=== PATIENT | male | born 1940 | race Caucasian/White ===

== ENCOUNTER 2023-05-31 15:36 | Inpatient (IN) | payer OTHER, MEDICAID ==
[~2023-05-31] VITALS: Ht 170.2 cm; Wt 78.7 kg
[2023-05-31 15:42] VITALS: PULSE 140; RESP 20; TEMP 97.1; O2SAT 98
--- NOTE | 2023-05-31 15:47 | NUR ---
[facility]- ALS TRANSPORT PATIENT WAS BIBA TO ER BED 03
[2023-05-31] MEDS ORDERED: DILTIAZEM 25 MG/5 ML VIAL IVP ONE ×2 (16:05→16:55)
[2023-05-31] MEDS ORDERED: ONDANSETRON 4 MG/2 ML VIAL IVP ONE ×2 (16:05→21:15)
[2023-05-31] MEDS ORDERED: NACL 0.9% 500 ML IV ONE ×2 (16:05→16:55)
--- NOTE | 2023-05-31 16:36 | NUR ---
biba from home per family more altered than usual. aao x3 with periods of forgetfulness. lethargic. recently treated for uti. bs 197. + nausea. 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 hx: bladder, kidney, prostates cancer, afib, htn. + right nephrostomy, ileostomy. per ems afib rvron 12 lead 110-150. aa0 x2. resp even and nonlabored. 18 g piv right ac by ems. dr. ross @ bedside
[2023-05-31 16:45] LABS: HEMATOCRIT 24.2 % (36-52); HEMOGLOBIN 8.1 g/dL (12.0-18.0); MEAN CORPUSCULAR HEMOGLOBIN 30 pg (27-31); MEAN CORPUSCULAR HGB CONC 33 g/dL (33-37); MEAN CORPUSCULAR VOLUME 89.7 fL (80-94); PLATELET COUNT (AUTO) 146 K/uL (140-450); RED BLOOD CELL COUNT(AUTO) 2.69 MIL/uL (4.20-6.10); RED CELL DISTRIBUTION WIDTH 17.5 % (11.6-13.7); WHITE BLOOD COUNT (AUTO) 20.6 K/uL (4.8-10.8)
[2023-05-31 16:52] LABS: BASOPHILS % (MANUAL) 0 % (0-2); EOSINOPHILS % (MANUAL) 2 % (0-4); LYMPHOCYTES % (MANUAL) 2 % (20-46); MONOCYTES % (MANUAL) 3 % (5-12); PROTHROMBIN TIME 12.2 secs (10.8-13.4)
[2023-05-31] MEDS ORDERED: DILTIAZEM 30 MG TAB PO ONE (16:55)
--- NOTE | 2023-05-31 17:03 | NUR ---
rectal temp 99
[2023-05-31 17:05] LABS: ALBUMIN 1.9 g/dL (3.4-5.0); ANION GAP 16.8 (8-16); ASPARTATE AMINOTRANSFERASE 45 U/L (15-37); CARBON DIOXIDE 18.4 mmol/L (21-32); CHLORIDE 103 mmol/L (98-107); CREATININE 2.4 mg/dL (0.6-1.3); GLUCOSE 124 mg/dL (74-106); POTASSIUM 4.2 mmol/L (3.5-5.1); SODIUM SERUM 134 mmol/L (136-145); TOTAL BILIRUBIN 0.8 mg/dL (0.0-1.0); UREA NITROGEN, BLOOD 45 mg/dL (7-18)
--- NOTE | 2023-05-31 17:09 | NUR ---
bp 99/60. afib on monitor with rta efrom 108-120. started 2nd bag ns 500 ml bolus. will cont to monitor
[2023-05-31] MEDS ORDERED: NOREPINEPHRINE 4 MG in DEXTROSE 5% 250 ML IV ONE (17:35)
[2023-05-31] MEDS ORDERED: PIPERACILLIN/TAZOBACTAM 3.375 GM in DEXTROSE 5% 50 ML IV ONE (17:35)
[2023-05-31] MEDS ORDERED: PIPERACILLIN/TAZOBACTAM 3.375 GM VIAL IV ONE (17:39)
--- NOTE | 2023-05-31 18:03 | NUR ---
per dr. rsos. start pt on levophed. d/t bp trending down 109/60. afib 109-127. called pharmacy and awaiting drip. iv atb started. central line set up @ bedside
[2023-05-31] MEDS ORDERED: ATOR40TA PO (18:10)
[2023-05-31] MEDS ORDERED: HYDR25TA32 PO (18:15)
[2023-05-31] MEDS ORDERED: APIX2.5 PO (18:15)
[2023-05-31] MEDS ORDERED: METO-624 PO (18:15)
[2023-05-31] MEDS ORDERED: LOSA100T2 PO (18:15)
[2023-05-31] MEDS ORDERED: MEGE40SU4 PO (18:15)
[2023-05-31] MEDS ORDERED: ESCI10TA PO (18:15)
--- NOTE | 2023-05-31 18:28 | NUR ---
er @ bedside for central line insertion. daughter aware of plan of care.
--- NOTE | 2023-05-31 18:41 | NUR ---
per er central line centralline to left neck. u/s confirmed. ok to use
--- NOTE | 2023-05-31 18:54 | NUR ---
repeat troponiin sent
[2023-05-31 18:59] LABS: BILIRUBIN,URINE NEGATIVE (NEGATIVE); BLOOD, URINE 3+ (NEGATIVE); LEUKOCYTE ESTERASE ,URINE 2+ (NEGATIVE); NITRITE, URINE NEGATIVE (NEGATIVE); UGLUCOSE NEGATIVE (NEGATIVE)
[2023-05-31 19:00] LABS: APPEARANCE,URINE CLOUDY (CLEAR); COLOR,URINE AMBER (YELLOW)
--- NOTE | 2023-05-31 19:04 | NUR ---
levophed drip initiated with 2 nurse verification. will cont to monitor
--- NOTE | 2023-05-31 19:12 | NUR ---
report given to adrian poe
--- NOTE | 2023-05-31 19:12 | NUR ---
received report from morning shift nurse.
--- NOTE | 2023-05-31 19:20 | NUR ---
pt on bed, A/Ox2. not in distress.
--- NOTE | 2023-05-31 19:51 | NUR ---
pt. wheeled to ct scan. accompanied by RN and radial drill press operator for plastic
--- NOTE | 2023-05-31 20:07 | NUR ---
pt wheeled back to bed from ct scan.
--- NOTE | 2023-05-31 20:22 | NUR ---
wiith nephrostomy tube on right with no output. with ileostpmy bag with liquid brown colored output
--- NOTE | 2023-05-31 21:00 | NUR ---
pt vomiting with phlegm and HR: 160. informed Rene. Dr. López verbally state to continue levophed.
--- NOTE | 2023-05-31 21:11 | NUR ---
daughter at bedside
--- NOTE | 2023-05-31 21:35 | NUR ---
informed ERMD of rectal temp: 100.1. Dr. López verbally acknowledge the report
[2023-05-31] MEDS ORDERED: ACETAMINOPHEN EXTRA STRENGTH 500 MG TAB PO ONE (21:40)
[2023-05-31] MEDS ORDERED: ACETAMINOPHEN 325 MG TAB PO PRN (21:55)
[2023-05-31] MEDS ORDERED: HYDROcodone/APAP 5/325 MG 1 TAB TAB PO PRN (21:55)
[2023-05-31] MEDS ORDERED: LORazepam 2 MG/ML VIAL IVP PRN (21:55)
[2023-05-31] MEDS ORDERED: MORPHINE SULFATE 2 MG/ML SYR IVP PRN (21:55)
[2023-05-31] MEDS ORDERED: NOREPINEPHRINE 8 MG in DEXTROSE 5% 250 ML IV PRN (21:55)
--- NOTE | 2023-05-31 22:30 | NUR ---
Patient will be admitted to care of Dr. Ann. Admited to ICU. Will go to room 2. Belongings list completed. Report to Ashli OCHOA. Ashli OCHOA verbalized understanding and no further question.
[2023-05-31 22:33] VITALS: BP 95/57; PULSE 99; RESP 18; TEMP 98.7; O2SAT 95
--- NOTE | 2023-05-31 22:33 | NUR ---
RECEIVED PT FROM ER VIA GURNEY.TRANSFERRED TO ICU BED2, MONITORS ATTACHED.AFIB NOTED ON MONITOR.ON ROOM AIR.NO SOB NOTED.MAINTAINED ON NPO ORDERED.ABDOMEN SOFT/NON DISTENDED.W/ILEOSTOMY IN PLACE, SMALL AMT OF YELLOWISH LIQUID/OUTPUT NOTED.W/RT NEPHROSTOMY TUBE ALREADY IN PLACE WITH SMALL AMT OF YELLOWISH OUTPUT NOTED.SKIN INTACT ON SACROCOCCYGEAL AREA.FOAM DRESSING APPLIED TO AREA.PT ABLE TO MOVE ALL EXTREMITIES WITH MILD WEAKNESS.FALL PRECAUTION IN PLACE.BED IN LOWEST POSITION.CALL LIGHT WITHIN REACH. PTS DAUGHTER DARSHAN AT BEDSIDE, PTS HX OBTAINED FROM HER. Addendum: 06/01/23 at 0329 by Milagros Aiken RN W/TLC TO LT IJ INTACT, GOOD BLOOD RETURN TO ALL 3 PORTS INFUSING LEVOPHED DRIP 4MG IN 250ML D5W AT 0.5MCG/MIN. PERIPHERAL IV TO LT AC G20 INTACT.SALINE LOCK AND RT AC G18 INTACT.SALINE LOCK
[2023-05-31 22:51] LABS: PROTHROMBIN TIME 12.6 secs (10.8-13.4)
[2023-05-31 23:00] VITALS: BP 89/45; PULSE 140; PULSE 148; RESP 15; RESP 16; O2SAT 95; O2SAT 96
[2023-05-31] MEDS: NACL 0.9% 1,000 ML IV SCH (23:00)
[2023-05-31 23:15] VITALS: BP 99/62; PULSE 145; RESP 18; O2SAT 95
--- NOTE | 2023-05-31 23:20 | NUR ---
SPOKE WITH DR Chari CASTILLO, SMART GRID ENGINEER, NOTIFIED OF CONSULT, UPDATED ON PTS CONDITION.ORDERED IVF NS AT 75ML/HR.CARRIED OUT
[2023-05-31] MEDS ORDERED: LACTATED RINGERS 1,000 ML IV SCH (23:25)
[2023-05-31] MEDS ORDERED: AMIODARONE 150 MG in DEXTROSE 5% 100 ML IV ONE (23:25)
[2023-05-31 23:30] VITALS: BP 101/62; PULSE 146; RESP 14; O2SAT 96
[2023-05-31] MEDS ORDERED: AMIODARONE 150 MG/3 ML VIAL IV ONE (23:30)
[2023-05-31] MEDS ORDERED: AMIODARONE 450 MG/9 ML VIAL IV ONE (23:30)
[2023-05-31] MEDS ORDERED: LACTATED RINGERS 1,000 ML IV ONE (23:35)
[2023-05-31] MEDS: AMIODARONE 450 MG in DEXTROSE 5% 250 ML IV SCH (23:36)
[2023-05-31 23:45] VITALS: BP 115/81; PULSE 145; RESP 14; O2SAT 96
[2023-06-01] VITALS (29 sets, daily range): BP systolic 93–136; BP diastolic 60–97; PULSE 88–155; RESP 12–21; TEMP 97–98.3; O2SAT 94–98
--- NOTE | 2023-06-01 | NUR ---
SPOKE WITH DR REDDY, CONVEYOR LINE BAKERY WORKER/PHONE REGARDING CONSULT.UPDATED PHYSICIAN WITH PTS PRESENT CONDITION, QUESTIONS ANSWERED.NEW ORDERS RECEIVED TO START AMIODARONE DRIP AFTER BOLUS AND 1 L LR BOLUS.CARRIED OUT. Addendum: 06/01/23 at 0316 by Milagros Aiken RN SPOKE WITH PRAKASH MCKAY SNOWMAKER NOT DR REDDY, CONVEYOR LINE BAKERY WORKER
[2023-06-01] MEDS ORDERED: PIPERACILLIN/TAZOBACTAM 2.25 GM VIAL IV ONE ×2 (00:04→04:58)
[2023-06-01] MEDS: PIPERACILLIN/TAZOBACTAM 2.25 GM in DEXTROSE 5% 50 ML IV SCH ×3 (00:15→11:25)
--- NOTE | 2023-06-01 00:30 | NUR ---
BM NOTED, LARGE AMT OF LIQUID BROWN STOOL, PT CLEANED.REPOSITIONED.DENIES PAIN
--- NOTE | 2023-06-01 03:10 | NUR ---
PT APPEARS ASLEEP, EASILY AROUSABLE.DENIES PAIN.HR STILL AFIB ON MONITOR.ON CONTINUOUS AMIODARONE DRIP
--- NOTE | 2023-06-01 04:00 | NUR ---
AFEBRILE.PT APPEARS ASLEEP.NO S/SX OF PAIN NOTED.TLC TO LT IJ INTACT STILL INFUSING AMIODARONE DRIP PER PROTOCOL.WILL CONTINUE TO CLOSELY MONITOR PT
[2023-06-01] MEDS ORDERED: PIPERACILLIN/TAZOBACTAM 2.25 GM in DEXTROSE 5% 50 ML IV SCH (05:00)
[2023-06-01] MEDS ORDERED: AMIODARONE 450 MG/9 ML VIAL IV ONE (05:01)
[2023-06-01] MEDS: AMIODARONE 450 MG in DEXTROSE 5% 250 ML IV SCH ×2 (05:09→18:42)
[2023-06-01 05:12] LABS: BASOPHILS % (AUTO) 0.1 % (0.0-2.0); EOSINOPHILS % (AUTO) 0.1 % (0.0-4.0); HEMATOCRIT 22.1 % (36-52); HEMOGLOBIN 7.7 g/dL (12.0-18.0); LYMPHOCYTES # (AUTO) 0.4 K/uL (2.0-11.5); MEAN CORPUSCULAR HEMOGLOBIN 30 pg (27-31); MEAN CORPUSCULAR HGB CONC 35 g/dL (33-37); MEAN CORPUSCULAR VOLUME 87.4 fL (80-94); MONOCYTES # (AUTO) 0.5 K/uL (0.8-1.0); MONOCYTES % (AUTO) 2.7 % (1.7-9.3); NEUTROPHILS # (AUTO) 19.4 K/uL (1.8-7.7); NEUTROPHILS % (AUTO) 95.1 % (42.2-75.2); PLATELET COUNT (AUTO) 139 K/uL (140-450); RED BLOOD CELL COUNT(AUTO) 2.53 MIL/uL (4.20-6.10); RED CELL DISTRIBUTION WIDTH 16.8 % (11.6-13.7); WHITE BLOOD COUNT (AUTO) 20.4 K/uL (4.8-10.8)
[2023-06-01 05:32] LABS: ALBUMIN 1.7 g/dL (3.4-5.0); ANION GAP 17.5 (8-16); ASPARTATE AMINOTRANSFERASE 28 U/L (15-37); CARBON DIOXIDE 17.2 mmol/L (21-32); CHLORIDE 105 mmol/L (98-107); CREATININE 2.4 mg/dL (0.6-1.3); GLUCOSE 135 mg/dL (74-106); MAGNESIUM 1.5 mg/dL (1.8-2.4); PHOSPHORUS 4.2 mg/dL (2.5-4.9); POTASSIUM 3.7 mmol/L (3.5-5.1); SODIUM SERUM 136 mmol/L (136-145); TOTAL BILIRUBIN 0.9 mg/dL (0.0-1.0); UREA NITROGEN, BLOOD 48 mg/dL (7-18)
--- NOTE | 2023-06-01 06:00 | NUR ---
AMIODARONE DRIP DECREASED PER PROTOCOL. PT ASLEEP,NO S/SX OF RESPIRATORY DISTRESS.NO PAIN NOTED.STILL AFIB ON MONITOR
--- NOTE | 2023-06-01 07:25 | NUR ---
Opening Received report on pt. Pt asleep, arousable, equal chest rise and fall, states no pain or distress on room air. Pt currently on amiodarone drip, HR in 100s, afib. Pt also receiving IV fluids to left IJ TLC. Ileostomy with small amount of yellow drainage. nephrostomy with yellow drainage. SCDs in place. IV saline lock sites, intact, patent.
[2023-06-01] MEDS: ONDANSETRON 4 MG/2 ML VIAL IVP PRN ×2 (09:59→20:39)
--- NOTE | 2023-06-01 09:59 | NUR ---
Pt c/o nausea, provided pt with PRN zofran per MD order and sips of water. Tolerated water without coughing.
--- NOTE | 2023-06-01 10:30 | NUR ---
Reassessed pt's nausea post administration, states he is okay.
--- NOTE | 2023-06-01 10:45 | NUR ---
Dr. Berry roundnidia on pt.
[2023-06-01] MEDS ORDERED: MAG SULF 2000 MG/WATER PREMIX 50 ML IV PRN (11:00)
[2023-06-01] MEDS ORDERED: VANCOMYCIN PER PHARMACY MC PRN (11:00)
[2023-06-01] MEDS ORDERED: POTASSIUM CHLORIDE 10 MEQ TABER PO PRN (11:00)
--- NOTE | 2023-06-01 11:00 | NUR ---
Dr. Snow rounding on pt.
[2023-06-01] MEDS: NACL 0.9% 1,000 ML IV SCH (11:25)
[2023-06-01] MEDS ORDERED: VANCOMYCIN 1,000 MG in DEXTROSE 5% 250 ML IV SCH (13:00)
--- NOTE | 2023-06-01 13:35 | NUR ---
Dr. Peter rounding on pt, states to collect stool sample and OK for pt to start on full liquid diet, other orders made as well.
--- NOTE | 2023-06-01 15:48 | NUR ---
Rounds Pt states no pain or distress on room air, no nausea. Pt with no noted BM.
[2023-06-01] MEDS ORDERED: DIGOXIN 0.25 MG/ML AMP IV ONE ×5 (17:15→23:30)
[2023-06-01] MEDS ORDERED: VANCOMYCIN 500 MG VIAL PO SCH (18:00)
--- NOTE | 2023-06-01 19:15 | NUR ---
Closing Pt in no signs of distress on room air. Pt with poor appetite for dinner, able to have some ice cream and drink. Remains on amiodarone drip. Endorsed plan of care to RN. Addendum: 06/01/23 at 1937 by Agency 02 DON RN No BM noted for stool collection.
--- NOTE | 2023-06-01 19:30 | NUR ---
ASSUMED CARE OF PT.INITIAL ASSESSMENT COMPLETED.AFIB NOTED ON MONITOR.ON ROOM AIR.NO SOB NOTED.W/PERIPHERAL IV TO BRIANA AND KELLEE INTACT AND TLC TO LT IJ WITH GOOD BLOOD RETURN TO ALL 3 PORTS INFUSING ORDERED IVF AND AMIODARONE DRIP AT 0.5MG/MIN.ABDOMEN SOFT/NON DISTENDED.W/ILEOSTOMY IN PLACE, SMALL AMT OF YELLOWISH LIQUID/OUTPUT NOTED.W/RT NEPHROSTOMY TUBE IN PLACE WITH SMALL AMT OF YELLOWISH OUTPUT NOTED.SKIN INTACT ON SACROCOCCYGEAL AREA.W/FOAM DRESSING D/I.PT ABLE TO MOVE ALL EXTREMITIES WITH MILD WEAKNESS.FALL PRECAUTION IN PLACE.BED IN LOWEST POSITION.CALL LIGHT WITHIN REACH. PTS DAUGHTER ALEX AT BEDSIDE,UPDATED ON PLAN OF CARE.QUESTIONS ANSWERED.
[2023-06-01] MEDS ORDERED: VANCOMYCIN 500 MG VIAL ONE (19:35)
--- NOTE | 2023-06-01 20:00 | NUR ---
PHONE CALL TO AFTER HOURS PHARM[facility]Y REGARDING VANCOMYCIN P.O; SPOKE WITH LAURE, SHE SAID TO GET A VANCO 500MG VIAL AND DILUTE WITH 20ML STERILE WATER AND GIVE 5ML TO THE PT PER DOSE.
[2023-06-01] MEDS ORDERED: WATER STERILE 20 ML MC ONE (20:09)
[2023-06-01] MEDS: METOPROLOL 50 MG TAB PO SCH (20:20)
[2023-06-01] MEDS: APIXABAN 2.5 MG TAB PO SCH (20:21)
[2023-06-01] MEDS: metroNIDAZOLE 500 MG/NS PREMIX 100 ML IV SCH (20:22)
[2023-06-01] MEDS: VANCOMYCIN HCL 25 MG/ML SOLN PO SCH (20:23)
[2023-06-01] MEDS ORDERED: MEROPENEM 500 MG VIAL IV ONE (20:40)
--- NOTE | 2023-06-01 20:40 | NUR ---
pt c/o nausea, zofran admin as ordered.
[2023-06-01] MEDS: MEROPENEM 500 MG in NACL 0.9% 50 ML IV SCH (20:45)
[2023-06-01] MEDS ORDERED: METOPROLOL 50 MG TAB PO SCH (21:00)
[2023-06-02] VITALS (15 sets, daily range): BP systolic 96–131; BP diastolic 47–80; PULSE 68–99; RESP 14–18; TEMP 96.7–98.9; O2SAT 94–98
--- NOTE | 2023-06-02 | NUR ---
PT ASLEEP,EASILY AROUSABLE.NO SOB NOTED ON ROOM AIR.DENIES PAIN.STILL ON AMIODARONE DRIP AT 0.5MG/MIN, STILL AFIB ON MONITOR
[2023-06-02] MEDS: VANCOMYCIN HCL 25 MG/ML SOLN PO SCH ×4 (00:52→17:35)
--- NOTE | 2023-06-02 03:00 | NUR ---
BM NOTED; MODERATE AMT OF BROWNISH LIQUID STOOL, SPEC FOR C DIFF SENT TO LAB ORDERED. PT CLEANED AND REPOSITIONED.DENIES PAIN
[2023-06-02] MEDS: NACL 0.9% 1,000 ML IV SCH ×2 (04:23→13:55)
[2023-06-02] MEDS: metroNIDAZOLE 500 MG/NS PREMIX 100 ML IV SCH ×3 (05:22→22:42)
[2023-06-02] MEDS: METOPROLOL 50 MG TAB PO SCH ×3 (05:22→21:00)
[2023-06-02] MEDS ORDERED: DIGOXIN 0.25 MG/ML AMP IV ONE (05:30)
[2023-06-02 05:42] LABS: BASOPHILS % (AUTO) 0.1 % (0.0-2.0); EOSINOPHILS # (AUTO) 0.2 K/uL (0-0.4); EOSINOPHILS % (AUTO) 0.9 % (0.0-4.0); LYMPHOCYTES # (AUTO) 0.4 K/uL (2.0-11.5); MEAN CORPUSCULAR HEMOGLOBIN 30 pg (27-31); MEAN CORPUSCULAR HGB CONC 33 g/dL (33-37); MEAN CORPUSCULAR VOLUME 88.9 fL (80-94); MONOCYTES # (AUTO) 0.5 K/uL (0.8-1.0); MONOCYTES % (AUTO) 2.5 % (1.7-9.3); NEUTROPHILS # (AUTO) 19.5 K/uL (1.8-7.7); NEUTROPHILS % (AUTO) 94.5 % (42.2-75.2); PLATELET COUNT (AUTO) 153 K/uL (140-450); RED CELL DISTRIBUTION WIDTH 17.5 % (11.6-13.7); WHITE BLOOD COUNT (AUTO) 20.7 K/uL (4.8-10.8)
[2023-06-02 06:12] LABS: PHOSPHORUS 4.2 mg/dL (2.5-4.9)
--- NOTE | 2023-06-02 06:24 | NUR ---
BM NOTED.SMALL AMT OF LIQUID BROWNISH STOOL, PT CLEANED.REPOSITIONED
[2023-06-02 06:55] LABS: ANION GAP 18.3 (8-16); CARBON DIOXIDE 14.2 mmol/L (21-32); CHLORIDE 104 mmol/L (98-107); CREATININE 2.4 mg/dL (0.6-1.3); GLUCOSE 130 mg/dL (74-106); POTASSIUM 3.5 mmol/L (3.5-5.1); SODIUM SERUM 133 mmol/L (136-145); UREA NITROGEN, BLOOD 52 mg/dL (7-18)
--- NOTE | 2023-06-02 07:15 | NUR ---
Opening Received report on pt. Pt asleep, arousable, equal chest rise and fall, states no pain or distress on room air. Pt on amiodarone drip continuously per Dr. Fowler. Pt with nephrostomy tube yellow output, and nephrostomy with yellow output. No other complaints at this time.
[2023-06-02] MEDS: ESCITALOPRAM 20 MG TAB PO SCH (08:38)
[2023-06-02] MEDS: MEROPENEM 500 MG in NACL 0.9% 50 ML IV SCH ×2 (08:38→22:45)
[2023-06-02] MEDS: ATORVASTATIN 20 MG TAB PO SCH (08:39)
[2023-06-02] MEDS: APIXABAN 2.5 MG TAB PO SCH ×2 (08:40→22:49)
[2023-06-02] MEDS: MEGESTROL 400 MG/10 ML UDC PO SCH (08:42)
[2023-06-02] MEDS ORDERED: LOSARTAN 50 MG TAB PO SCH (09:00)
[2023-06-02] MEDS ORDERED: hydroCHLOROthiazide 25 MG TAB PO SCH (09:00)
[2023-06-02] MEDS ORDERED: VANCOMYCIN 750 MG in DEXTROSE 5% 250 ML IV SCH (09:00)
[2023-06-02] MEDS: ONDANSETRON 4 MG/2 ML VIAL IVP PRN (09:01)
--- NOTE | 2023-06-02 09:14 | NUR ---
PATIENT HAS BEEN SCREENED AND CATEGORIZED HIGH NUTRITION RISK. PATIENT WILL BE SEEN WITHIN 1-2 DAYS OF ADMISSION. 06/01/23-06/02/23 [facility] CONSULT RECEIVED FOR PATIENT FOR UNINTENTIONAL WEIGHT LOSS, LOSS OF APPETITE AND NAUSEA X3 DAYS ON 06/02/23. JOSSE [address]ERO [address]
--- NOTE | 2023-06-02 10:00 | NUR ---
Pt's son at bedside, helped with encouraging pt to take food and morning PO meds. Pt able to tolerate 10-15% of meal but states "I want to sleep, I'm not hungry."
--- NOTE | 2023-06-02 10:04 | NUR ---
Inserted 16Fr reaves catheter with aseptic technique per orders from urology. Little to no output noted in reaves catheter. No bleeding or resistance noted. Pt tolerated well. Placed bag below level of bladder.
--- NOTE | 2023-06-02 10:39 | NUR ---
DC [age]ANN[age] YRS OLD MALE PATIENT WAS ADMITTED FROM HOME WITH A DX OF SEPTIC SHOCK AND COLITIS. PATIENT HAS A HX OF BLADDER, PROSTATE AND KIDNEY CANCER, HTN, AND A-FIB. CXR SHOWED LEFT MID AND LOWER LUNG ZONE SUBSEGMENTAL ATELECTASIS. CT HEAD NO EVIDENCE OF ACUTE INTRACRANIAL HEMORRHAGE. CT ABD/PELVIS SHOWED DIFFUSE COLONIC WALL THICKENING WHICH MAY INDICATE INFECTIOUS OR INFLAMMATORY COLITIS. ADMINISTERED IVF, IV ABX MEROPENEM AND FLAGYL. CONSULTED WITH GI, NEPHRO,PULMO, CARDIO AND ID. PT EVALUATION ORDERED . DC PLAN PER PT'S RECOMMENDATION HOME VS SNF. CM TO FOLLOW
--- NOTE | 2023-06-02 11:02 | NUR ---
Pt stable for transfer to [facility] per MD. Pt transfer to room 123A, accompanied by RN. Endorsed plan of care to Milo OCHOA. All belongings sent with patient. Pt's son also accompanied transfer.
--- NOTE | 2023-06-02 11:09 | NUR ---
RECEIVED FROM ICU VIA GURMARSHA ACCOMPANIED BY PTEladia SANCHEZ. KEEP COMFORTABLE ON BED. FALL PRECAUTION APPLIED. CALL LIGHT WITHIN REACH.
--- NOTE | 2023-06-02 13:31 | NUR ---
Metal Window Frame Maker Pt. has HH services, an Rn comes out 2 times per week and a PT comes out once, maybe twice per week for the past 3 weeks. Home Health began approx. 3 weeks ago when pt. was at a hospital for surgery. Dtr. could not recall the name of the Home Health company. Dtr. stated her and sister care for pt and help him as pt. is unable to perform his ADLs. Dtr. stated pt. is not bed bound bound is moving in that direction. Pt. is not able to walk , can assist in transfer to use the restroom. As per dtrCarmita, she wants pt. to return back home when he is stable. PRECISION AGRICULTURE TECHNICIAN does not know at this time if pt. would need a SNF at which point this should be discussed with family.
--- NOTE | 2023-06-02 15:04 | NUR ---
06/02/23 RD INITIAL ASSESSMENT COMPLETED PLEASE REFER TO NUTRITION ASSESSMENT UNDER CARE ACTIVITY FOR ESTIMATED NUTRITIONAL NEEDS. 1. CONTINUE FULL LIQUID DIET TOLERATED AND ONCE MEDICALLY APPROPRIATE ADVANCE DIET TO CARDIAC IF TEXTURES ARE ALSO NOT AN ISSUE. 2. RD RECOMMENDS ENSURE BID TO HELP WITH PO INTAKE. THIS WILL PROVIDE 700 CALORIES AND 40 GRAMS OF PROTEIN. 3. RD TO FOLLOW-UP 2-3 DAYS, HIGH RISK JOSSE ROMERO RD
--- NOTE | 2023-06-02 18:29 | NUR ---
DR. CALHOUN CAME INFORMED OF PT. C-DIFF POSITIVE. NO ORDER RECEIVED.
--- NOTE | 2023-06-02 19:18 | NUR ---
REPORT GIVEN TO GIACOMO VELASCO. IVF INFUSING WELL. IN STABLE CONDITION.
--- NOTE | 2023-06-02 19:30 | NUR ---
HAND-OFF REPORT RECEIVED FROM VALERIE HENDRICKS WITH BEDSIDE ROUNDS FOLLOWING. ENDORSED PT RECEIVED FROM ICU WITH SEPTIC CHOCK AND COLITIS. RLQ ILEOSTOMY WITH 240ML OUT. RIGHT NEPHROSTOMY WITH 100ML OUT. VALENZUELA WITH 0ML OUT. DENIES PAIN. RIJ TLC WITH NS@75 LAC 20GA SL. RAC 18G SL. AFEBRILE LAST BP 98/59. CONTACT ISO CDIFF. FAMILY AT BEDSIDE. PT RECEIVED STABLE AOX3 BURKINAN SPEAKING. CONTINUE TO MONITOR AND ASSIST.
--- NOTE | 2023-06-02 20:30 | NUR ---
MUKESH CARE. LARGE AMT WATERY BUTTERSCOTCH COLORED STOOL.
[2023-06-03] VITALS (7 sets, daily range): BP systolic 87–140; BP diastolic 46–71; PULSE 74–86; RESP 16–19; TEMP 96.9–97.7; O2SAT 87–97
--- NOTE | 2023-06-03 00:30 | NUR ---
VS B/P 87/50 HR 86. TURNED, CDB EXERCISES, MUKESH-CARE. RECHECKED, B/P 77/54 HR 82. PT ASYMPTOMATIC. DAVID CRAWFORD NOTIFIED. STANDING BY FOR ORDERS. SON AT BEDSIDE.
--- NOTE | 2023-06-03 01:30 | NUR ---
NO RETURN CALL FROM MD. VS RECHECKED: B/P=96/51 HR 80 PT REMAINS ASYMPTOMATIC. NOTIFIED MD. PT REMAINS ASYMPTOMATIC.
[2023-06-03] MEDS: METOPROLOL 50 MG TAB PO SCH ×3 (05:00→20:32)
[2023-06-03] MEDS: metroNIDAZOLE 500 MG/NS PREMIX 100 ML IV SCH ×3 (05:01→20:33)
[2023-06-03] MEDS: VANCOMYCIN HCL 25 MG/ML SOLN PO SCH ×5 (05:07→23:19)
[2023-06-03 05:28] LABS: EOSINOPHILS % (AUTO) 0.2 % (0.0-4.0); HEMATOCRIT 24.5 % (36-52); HEMOGLOBIN 8.1 g/dL (12.0-18.0); LYMPHOCYTES # (AUTO) 0.4 K/uL (2.0-11.5); LYMPHOCYTES % (AUTO) 2.6 % (20.5-51.1); MEAN CORPUSCULAR HEMOGLOBIN 30 pg (27-31); MEAN CORPUSCULAR HGB CONC 33 g/dL (33-37); MEAN CORPUSCULAR VOLUME 89.5 fL (80-94); MONOCYTES # (AUTO) 0.6 K/uL (0.8-1.0); MONOCYTES % (AUTO) 3.4 % (1.7-9.3); NEUTROPHILS # (AUTO) 15.2 K/uL (1.8-7.7); NEUTROPHILS % (AUTO) 93.8 % (42.2-75.2); PLATELET COUNT (AUTO) 143 K/uL (140-450); RED BLOOD CELL COUNT(AUTO) 2.74 MIL/uL (4.20-6.10); RED CELL DISTRIBUTION WIDTH 17.7 % (11.6-13.7); WHITE BLOOD COUNT (AUTO) 16.2 K/uL (4.8-10.8)
[2023-06-03 06:16] LABS: ANION GAP 14.8 (8-16); CARBON DIOXIDE 15.4 mmol/L (21-32); CHLORIDE 105 mmol/L (98-107); CREATININE 2.5 mg/dL (0.6-1.3); GLUCOSE 131 mg/dL (74-106); POTASSIUM 3.2 mmol/L (3.5-5.1); SODIUM SERUM 132 mmol/L (136-145)
[2023-06-03 06:17] LABS: PHOSPHORUS 3.5 mg/dL (2.5-4.9)
[2023-06-03 06:31] LABS: UREA NITROGEN, BLOOD 62 mg/dL (7-18)
[2023-06-03] MEDS: NACL 0.9% 1,000 ML IV SCH ×2 (07:07→16:35)
[2023-06-03] MEDS: MEROPENEM 500 MG in NACL 0.9% 50 ML IV SCH ×2 (08:28→21:24)
[2023-06-03] MEDS: ESCITALOPRAM 20 MG TAB PO SCH (08:29)
[2023-06-03] MEDS: DIGOXIN 0.125 MG TAB PO SCH (08:31)
[2023-06-03] MEDS: ATORVASTATIN 20 MG TAB PO SCH (08:31)
[2023-06-03] MEDS: MEGESTROL 400 MG/10 ML UDC PO SCH (08:45)
[2023-06-03] MEDS: APIXABAN 2.5 MG TAB PO SCH ×2 (08:54→20:32)
--- NOTE | 2023-06-03 09:02 | NUR ---
PT. WITH LOW TRAVIS SCALE AT MODERATE TO HIGH RISK, CONTINUE TO FOLLOW PRESSURE INJURY PREVENTION INTERVENTIONS. -POSITIONING: TURN AND REPOSITION PATIENT Q 2H OR SOONER USE PILLOWS TO KEEP BONY PROMINENCES FROM DIRECT CONTACT WITH SURFACES USE REPOSITIONING WEDGES TO PROVIDE 30-DEGREE ANGLE FOR SIDE LYING POSITIONS OFFLOADING OR FOAM DRESSING TO ALL TUBING TO PREVENT MEDICAL DEVICES RELATED PRESSURE INJURY -RE-EVALUATING AND MANAGING INCONTINENCE MONITOR SKIN CONDITION DURING POSITION CHANGE DO NOT MASSAGE REDNESS, BONY PROMINENCES FREQUENT MUKESH-CARE AND PROVIDE BARRIER CREAMS PRN IF SOILING MOISTURE CONTROL BY OFFER BED YUN/URINAL /ABSORBENT PAD TO WICK AND HOLD MOISTURE KEEP SKIN DRY AND PROTECT FROM FRICTION -MANAGE FRICTION/SHEAR/MOBILITY KEEP HOB AT THE LOWEST LEVEL OF ELEVATION NO MORE THAN 30 DEGREE UNLESS OTHERWISE CONTRAINDICATED USE LIFT SHEET OR TRANSFER DEVICE TO MOVE PATIENT AND PREVENT LATERAL SHEER. PROTECT HEELS, ELBOWS BONY PROMINENCES WITH SKIN BERRIES OR FOAM DRESSING IF EXPOSED TO FRICTION OFFLOAD BILATERAL HEELS BY PLACING PILLOWS UNDER CALVES AT ALL TIMES, UNLESS OTHERWISE CONTRAINDICATED -PRESSURE REDISTRIBUTION SURFACE THERAPY MAREN ISOFLEX MATTRESS -NUTRITION: PLEASE FOLLOW RD RECOMMENDATIONS AND OFFER NUTRITION SUPPLEMENTS IF ORDERED. PLEASE CONTACT WOUND CARE NURSE FOR ANY QUESTION AND CHANGE OF WOUND CONDITION.
--- NOTE | 2023-06-03 11:22 | NUR ---
AT THE BED SIDE , ORDERED THE LIQUID POTASSIUM C/O PT NOT ABLE TO SWALLOW BIG PILL.[email or web address]
[2023-06-03] MEDS: POTASSIUM CHLORIDE 20% 40 MEQ/15 ML UDC GT PRN (11:36)
[2023-06-03] MEDS: ALBUMIN HUMAN 25% 100 ML IV SCH ×2 (13:00→14:18)
--- NOTE | 2023-06-03 14:35 | NUR ---
P.T. NOTES P.T. EVAL COMPLETED; REFER TO EVAL FOR DETAILS.
--- NOTE | 2023-06-03 15:00 | NUR ---
PT IS TRYING TO GET OUT OF BED TO WEAR HIS OWN CLOTH AND GO HOME, AT BEDSIDE.PT REORIENTED AND BACK IN BED. REPOSITIONED. [id number]
--- NOTE | 2023-06-03 19:25 | NUR ---
RECEIVED PT IN BED AWAKE, ALERT AND ORIENTED TO NAME, WITH CONFUSION. RE-ORIENTED TO TIME, PLACE AND DATE. FAMILY MEMBERS AT THE BEDSIDE. NO S/SX OF PAIN /DISCOMFORT. NO ACUTE RESPIRATORY DISTRESS. SKIN WARM AND DRY TO TOUCH. BED IN THE LOWEST AND LOCKED POSITION FOR SAFETY, CALL LIGHT WITHIN REACH, ENCOURAGED FAMILY MEMBERS TO CALL IF ASSISTANCE IS NEEDED, VERBALLY ACKNOWLEDGED.
--- NOTE | 2023-06-03 19:26 | NUR ---
gave report from the night nurse. pt seeping now. [email or web address]
[2023-06-03] MEDS ORDERED: CEFEPIME 2,000 MG in DEXTROSE 5% 100 ML IV SCH (21:50)
--- NOTE | 2023-06-03 22:00 | NUR ---
PATIENT HAD A LARGE BOWEL MOVEMENT, NOTED BROWN SOFT STOOL. CLEANED PT. REPOSITIONED FOR COMFORT. CALL LIGHT WITHIN REACH.
[2023-06-03] MEDS ORDERED: CEFEPIME 1,000 MG VIAL ONE (23:12)
[2023-06-04] VITALS: BP 116/73; PULSE 61; PULSE 68; RESP 18; TEMP 97.4; O2SAT 96
[2023-06-04] MEDS ORDERED: CEFEPIME 1,000 MG in DEXTROSE 5% 50 ML IV SCH ×2
--- NOTE | 2023-06-04 | NUR ---
VITAL SIGNS TAKEN AND DOCUMENTED, WITHIN NORMAL LIMITS. REPOSITIONED FOR COMFORT. DAUGHTER AT THE BEDSIDE.
[2023-06-04] MEDS: NACL 0.9% 1,000 ML IV SCH (00:50)
[2023-06-04 04:00] VITALS: BP 142/66; PULSE 76; PULSE 84; RESP 18; TEMP 97.8; O2SAT 95
[2023-06-04] MEDS: metroNIDAZOLE 500 MG/NS PREMIX 100 ML IV SCH ×2 (04:08→12:20)
[2023-06-04] MEDS: METOPROLOL 50 MG TAB PO SCH ×2 (04:09→12:25)
--- NOTE | 2023-06-04 04:15 | NUR ---
PT GETTING RESTLESS, CLEAN PT AND MADE COMFORTABLE IN BED. INFORMED DAUGHTER ILANA THAT ATIVAN IS ORDERED FOR PT IF HE GETS RESTLESS/ANXIOUS, DAUGHTER REFUSED, STATING:" HE MIGHT FALL ASLEEP NOW." INFORMED DAUGHTER TO CALL IF ASSISTANCE IS NEEDED, PT VERBALLY ACKNOWLEDGED.
[2023-06-04] MEDS: VANCOMYCIN HCL 25 MG/ML SOLN PO SCH ×2 (05:09→11:58)
--- NOTE | 2023-06-04 05:37 | NUR ---
PATIENT CURRENTLY ASLEEP. NO DISTRESS NOTED. DAUGHTER AT THE BEDSIDE.
[2023-06-04 05:40] LABS: BASOPHILS % (AUTO) 0.1 % (0.0-2.0); EOSINOPHILS # (AUTO) 0.1 K/uL (0-0.4); EOSINOPHILS % (AUTO) 0.5 % (0.0-4.0); HEMATOCRIT 23.6 % (36-52); HEMOGLOBIN 7.8 g/dL (12.0-18.0); LYMPHOCYTES # (AUTO) 0.5 K/uL (2.0-11.5); LYMPHOCYTES % (AUTO) 4.4 % (20.5-51.1); MEAN CORPUSCULAR HEMOGLOBIN 30 pg (27-31); MEAN CORPUSCULAR HGB CONC 33 g/dL (33-37); MEAN CORPUSCULAR VOLUME 89.6 fL (80-94); MONOCYTES # (AUTO) 0.5 K/uL (0.8-1.0); MONOCYTES % (AUTO) 4.2 % (1.7-9.3); NEUTROPHILS % (AUTO) 90.8 % (42.2-75.2); PLATELET COUNT (AUTO) 167 K/uL (140-450); RED BLOOD CELL COUNT(AUTO) 2.63 MIL/uL (4.20-6.10); RED CELL DISTRIBUTION WIDTH 17.5 % (11.6-13.7)
[2023-06-04 05:50] LABS: ANION GAP 14.6 (8-16); CARBON DIOXIDE 15.7 mmol/L (21-32); CHLORIDE 108 mmol/L (98-107); CREATININE 2.3 mg/dL (0.6-1.3); GLUCOSE 103 mg/dL (74-106); POTASSIUM 3.3 mmol/L (3.5-5.1); SODIUM SERUM 135 mmol/L (136-145); UREA NITROGEN, BLOOD 61 mg/dL (7-18)
[2023-06-04 05:58] LABS: PHOSPHORUS 2.7 mg/dL (2.5-4.9)
--- NOTE | 2023-06-04 06:21 | NUR ---
PATIENT IS ASLEEP. NO DISTRESS NOTED. ALL NEEDS ATTENDED TO. SAFETY PRECAUTIONS MAINTAINED DURING THE SHIFT, CALL LIGHT REMAINS WITHIN REACH.
--- NOTE | 2023-06-04 07:24 | NUR ---
GOT REPORT FROM THE NIGHT NURSE, PT SLEEPING, WAS UP MOST OF THE NIGHT, THE DAUGHTER AT BEDSIDE DISCUSSED PT CARE AND HER CONCERN.[email or web address]
[2023-06-04 08:00] VITALS: BP 97/60; PULSE 76; PULSE 88; RESP 16; TEMP 98.5; O2SAT 98
[2023-06-04] MEDS: DIGOXIN 0.125 MG TAB PO SCH (08:42)
[2023-06-04] MEDS: ATORVASTATIN 20 MG TAB PO SCH (08:43)
[2023-06-04] MEDS: MEGESTROL 400 MG/10 ML UDC PO SCH (08:43)
[2023-06-04] MEDS: POTASSIUM CHLORIDE 20% 40 MEQ/15 ML UDC GT PRN (08:45)
[2023-06-04] MEDS: APIXABAN 2.5 MG TAB PO SCH (08:53)
[2023-06-04] MEDS: ESCITALOPRAM 20 MG TAB PO SCH (08:54)
--- NOTE | 2023-06-04 10:08 | NUR ---
daughter is at bedside, pt is fast asleep, c/o did not sleep much at night.[email or web address]
--- NOTE | 2023-06-04 10:36 | NUR ---
pt worked with pt, says pt took couple of steps and he is confused.[email or web address]
[2023-06-04] MEDS ORDERED: ESCI20TA49 PO (11:22)
[2023-06-04] MEDS ORDERED: METO50TA99 PO (11:22)
[2023-06-04] MEDS ORDERED: METR-520 PO (11:22)
[2023-06-04] MEDS ORDERED: CEFE1SOL IV (11:22)
[2023-06-04 12:00] VITALS: BP 93/49; PULSE 51; PULSE 52; RESP 16; TEMP 96.8; O2SAT 95
--- NOTE | 2023-06-04 12:38 | NUR ---
VALENZUELA CATHETER REMOVED,PER DR CARRASQUILLO. [email or web address]
--- NOTE | 2023-06-04 13:00 | NUR ---
ileostomy bag had 250cc output, the nephrectomy tube had 200cc output
--- NOTE | 2023-06-04 13:29 | NUR ---
pt sleeping , family members at bedside.[email or web address]
--- NOTE | 2023-06-04 14:00 | NUR ---
pt was bleeding from the penis where the Mohan catheter removed, cleaned the blood with some clot, and observed if anymore blood coming for a while, there is not anymore blood from the penis.[email or web address]
[2023-06-04] MEDS: ONDANSETRON 4 MG/2 ML VIAL IVP PRN (15:59)
[2023-06-04 16:00] VITALS: BP_SYST 106; BP_SYST 118; BP_DIAS 59; BP_DIAS 61; PULSE 57; PULSE 88; RESP 16; TEMP 98.2; O2SAT 98; O2SAT 99
--- NOTE | 2023-06-04 16:28 | NUR ---
discharged pt to home , discharge instruction is given, left the right side triple lumen picline in place per pt is going to have iv [facility] home health , id band removed, all the instruction explained to daughter and . pt given Zofran before discharged, pt transferred to the car . no short of breath up on the transfer, the illio bag and nephrectomy bag in place.[email or web address]
[2023-06-04] MEDS ORDERED: ESCITALOPRAM 20 MG TAB PO SCH (21:00)
== END 2023-06-04 16:20 | disposition home or self-care (01) | DRG 871 ==
LOC: MED 15:36 → MIC 22:16 → MTU 06-02 11:10
PROVIDERS: ADMIT Student in an Organized Health Care Education/Training Program; ATTEND Student in an Organized Health Care Education/Training Program
PROC: 02HV33Z Insertion of Infusion Device into Superior Vena Cava, Percutaneous Approach (ICD-10-PCS; principal; 2023-05-31)
PROC: B548ZZA Ultrasonography of Superior Vena Cava, Guidance (ICD-10-PCS; 2023-05-31)
DX: A41.9 Sepsis, unspecified organism (principal); E43 Unspecified severe protein-calorie malnutrition; J18.9 Pneumonia, unspecified organism; N17.0 Acute kidney failure with tubular necrosis; R65.21 Severe sepsis with septic shock; N39.0 Urinary tract infection, site not specified; I31.39 Other pericardial effusion (noninflammatory); R18.8 Other ascites; A04.72 Enterocolitis due to Clostridium difficile, not specified as recurrent; I48.91 Unspecified atrial fibrillation; I65.29 Occlusion and stenosis of unspecified carotid artery; I12.9 Hypertensive chronic kidney disease with stage 1 through stage 4 chronic kidney disease, or unspecified chronic kidney disease; D64.9 Anemia, unspecified; Z20.822 Contact with and (suspected) exposure to COVID-19; N18.30 Chronic kidney disease, stage 3 unspecified; G31.9 Degenerative disease of nervous system, unspecified; E78.5 Hyperlipidemia, unspecified; F32.9 Major depressive disorder, single episode, unspecified; K76.89 Other specified diseases of liver; Y95 Nosocomial condition; Z85.46 Personal history of malignant neoplasm of prostate; Z90.5 Acquired absence of kidney; Z85.528 Personal history of other malignant neoplasm of kidney; Z85.51 Personal history of malignant neoplasm of bladder; Z79.01 Long term (current) use of anticoagulants; Z93.2 Ileostomy status; Z93.6 Other artificial openings of urinary tract status
CPT/HCPCS: 36415; 70450; 71045; 80048; 80053; 80202; 81001; 83605; 83735; 83880; 84100; 84484; 85025; 85610; 85730; 87040; 87070; 87081; 87086; 96361; 96374; 96375; 97116; 97163-GP; 97530; 99291; J0282; J0692; J1160; J2185; J2405; J2543; J3370; J3475; J3490; J7060; P9046; Q0092